=== PATIENT | female | born 1990 | race Caucasian/White ===

== ENCOUNTER 2016-06-23 15:20 | Emergency (ER) | payer OTHER ==
[~2016-06-23] VITALS: Ht 162.6 cm; Wt 50.3 kg
[~2016-06-23 15:20] MED LIST: NAPR500 PO; TRAM50 PO
[2016-06-23 15:22] VITALS: BP 118/82; PULSE 89; RESP 16; TEMP 98.3; O2SAT 100
[2016-06-23] MEDS ORDERED: CEPH250C PO (15:50)
[2016-06-23] MEDS ORDERED: IBUP-232 PO (15:50)
[2016-06-23] MEDS ORDERED: TRAM50TA PO (15:50)
[2016-06-23] MEDS ORDERED: INDO50CA PO (15:50)
--- NOTE | 2016-06-23 15:58 | PD ---
HPI Chief Complaint: Back/ Neck Pain or Injury Time Seen by Provider: 15:51 Travel History International Travel<30 days: No Contact w/Intl Traveler<30days: No Traveled to known affect area: No History of Present Illness HPI 25 years old female complains of low back pain. Patient states that the pain started a week ago. Patient denies any recent injury. Patient states the pain is aching pain with radiation down to the legs. Patient denies any headache. Patient denies any chest pain or shortness of breath. Patient denies abdominal pain. Patient denies any dysuria or frequency. Patient denies any fever chills. Patient denies any focal weakness or numbness of lower extremity. Patient has history of endometriosis and had surgery recently. Patient has been seen by data entry supervisor for that. PFSH Past Medical History Diminished Hearing: No Reproductive: Yes (endometriosis) Immunizations Current: Yes Influenza Vaccination: Yes ?: Unknown LMP: 05/08/16 Menopausal: No Past Surgical History Genitourinary Surgery: Yes (cytoscopy) Gynecologic Surgery: Yes (LAP ON BI LAT OVARIES) Other Surgery: Yes (BLADDER) Social History Alcohol Use: No Tobacco Use: Yes (1 cigarette daily) Substance Use: No Allergies-Medications (Allergen,Severity, Reaction): Coded Allergies: No Known Allergies (Unverified , 06/23/16) Reported Meds & Prescriptions Reported Meds & Active Scripts Active Reported Ibuprofen 600 Mg Tab 600 Mg PO Q8HR PRN Indomethacin 50 Mg Cap 50 Mg PO TID Take with food, milk, or antacids to decrease stomach adverse effects. Tramadol (Tramadol HCl) 50 Mg Tab 50 Mg PO Q8H PRN Cephalexin 250 Mg Cap 250 Mg PO Q8H PRN Review of Systems General / Constitutional: No: Fever Eyes: No: Visual changes HENT: No: Headaches Cardiovascular: No: Chest Pain or Discomfort Respiratory: No: Shortness of Breath Gastrointestinal: No: Abdominal Pain Genitourinary: No: Dysuria Musculoskeletal: No: Pain Skin: No Rash Neurologic: No: Weakness Psychiatric: No: Depression Endocrine: No: Polydipsia Hematologic/Lymphatic: No: Easy Bruising Physical Exam Narrative GENERAL: Well-nourished, well-developed patient. SKIN: Warm and dry. HEAD: Normocephalic. EYES: No scleral icterus. No injection or drainage. NECK: Supple, trachea midline. No JVD or lymphadenopathy. CARDIOVASCULAR: Regular rate and rhythm without murmurs, gallops, or rubs. RESPIRATORY: Breath sounds equal bilaterally. No accessory muscle use. GASTROINTESTINAL: Abdomen soft, non-tender, nondistended. MUSCULOSKELETAL: No cyanosis, or edema. BACK: Mild tenderness on palpation lumbar area, without obvious deformity. No CVA tenderness. Neurologic exam normal. Data Data Last Documented VS Vital Signs Date Time Temp Pulse Resp B/P Pulse Ox O2 Delivery O2 Flow Rate FiO2 06/23/16 15:22 98.3 89 16 118/82 100 Orders Urinalysis - C+S If Indicated (06/23/16 15:52) Ed Urine Pregnancytest Poc (06/23/16 15:52) Spine, Lumbar - Ltd (Ap & Lat) (06/23/16 15:52) Labs Laboratory Tests Test 06/23/16 16:00 Urine Color YELLOW Urine Turbidity CLOUDY Urine pH 6.0 Urine Specific [place] 1.025 Urine Protein NEG mg/dL Urine Glucose (UA) NEG mg/dL Urine Ketones NEG mg/dL Urine Occult Blood SMALL Urine Nitrite NEG Urine Bilirubin NEG Urine Leukocyte Esterase NEG Urine RBC 4-9 /hpf Urine WBC 0-2 /hpf Urine Squamous Epithelial 0-5 /hpf Cells Urine Bacteria RARE /hpf Microscopic Urinalysis Comment CULT NOT INDICATED MDM Medical Decision Making Medical Screen Exam Complete: Yes Emergency Medical Condition: Yes Interpretation(s) Urine test negative. 1705 p.m. Lumbar spine x-ray negative acute pathology. UA negative. Differential Diagnosis Differential diagnosis including lumbar strain, fracture, H&P, UTI, pyelonephritis, nephrolithiasis, PID. Narrative Course 25 years old female with low back pain. Diagnosis Primary Impression: Lumbar strain Qualified Code: S39.012A - Lumbar strain, initial encounter Patient Instructions: General Instructions Additional Instructions: Take medication as needed for pain. Follow-up with personal physician, data entry supervisor and orthopedist. Return if worse. Med/Other Pt SpecificInfo: Prescription(s) given Scripts Methocarbamol (Robaxin)750 Mg Poi461 Mg PO QID #40 TAB Prov:Osvaldo Joyce MD 06/23/16 Disposition: 01 DISCHARGE HOME Condition: Stable Osvaldo Joyce MD Jun 23, 2016 15:58
[2016-06-23 16:26] LABS: BLOOD, URINE SMALL (NEG); GLUCOSE,URINE NEG (NEG); KETONE, URINE NEG (NEG); NITRITE,URINE NEG (NEG)
[2016-06-23 16:32] LABS: URINE COLOR YELLOW (YELLW/STRAW)
[2016-06-23 16:33] LABS: BACTERIA, URINE RARE /hpf; SQUAMOUS EPITHELIAL CELL URINE 0-5 /hpf (0-5); WBC, URINE 0-2 /hpf (0-5)
[2016-06-23 16:34] LABS: COMMENT (UR) CULT NOT INDICATED; CULTURE IF INDICATED CULT NOT INDICATED
--- NOTE | 2016-06-23 16:50 | RADHPO ---
EXAM DATE/TIME: 06/23/2016 16:29 [facility] COMPARISON: No previous studies available for comparison. INDICATIONS : Lower back pain that radiates down legs. No known injury. MEDICAL HISTORY : None. SURGICAL HISTORY : None. ENCOUNTER: Initial ACUITY: 1 week PAIN SCORE: 3/10 LOCATION: Lumbar spine. FINDINGS: Three views of the lumbar spine demonstrate no fracture or compression deformity is present. There is no anterolisthesis or retrolisthesis. No significant arthropathy is present. The visualized paraspinous soft tissues and pelvic bones demonstrate no acute abnormality. CONCLUSION: No acute lumbar spine abnormality is identified. Edwardo Mcknight MD on June 23, 2016 at 16:47 Board Certified Radiologist. This report was verified electronically.
[2016-06-23] MEDS ORDERED: ROBA750T PO (17:10)
== END 2016-06-23 17:20 | disposition home or self-care (01) ==
LOC: PHEFT 15:20
DX: S39.012A Strain of muscle, fascia and tendon of lower back, initial encounter (principal); Z72.0 Tobacco use; X58.XXXA Exposure to other specified factors, initial encounter; Y99.9 Unspecified external cause status; Y93.9 Activity, unspecified
CPT/HCPCS: 72100; 81001; 84703; 99283

== ENCOUNTER 2016-09-20 06:19 | Emergency (ER) | payer OTHER ==
[~2016-09-20] VITALS: Ht 162.6 cm; Wt 53.0 kg
[~2016-09-20 06:19] MED LIST changes: +CEPH250C PO; +IBUP-232 PO; +INDO50CA PO; -NAPR500 PO; +ROBA750T PO; -TRAM50 PO; +TRAM50TA PO
[2016-09-20 06:20] VITALS: BP 152/88; PULSE 88; RESP 16; TEMP 98.7; O2SAT 99
--- NOTE | 2016-09-20 07:31 | PD ---
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 This patient is going through a fertility clinic in [place] to try to get . She has never been before. 20 days ago she had an intrauterine implantation. She took a test 3 days ago that was negative. She developed some pelvic cramping yesterday. Today at 5 AM she had a bit of vaginal bleeding and passed a small amount of tissue. No fever or vaginal discharge. Some severity is moderate. No alleviating factors. Duration one day. PFSH Past Medical History Diminished Hearing: No Reproductive: Yes (endometriosis) Immunizations Current: Yes ?: Unknown LMP: 08/15/16 Menopausal: No Past Surgical History Genitourinary Surgery: Yes (cytoscopy) Gynecologic Surgery: Yes (LAP ON BI LAT OVARIES) Other Surgery: Yes (BLADDER) Social History Alcohol Use: No Tobacco Use: Yes (1 cigarette daily) Substance Use: No Allergies-Medications (Allergen,Severity, Reaction): Coded Allergies: No Known Allergies (Unverified , 09/20/16) Reported Meds & Prescriptions Reported Meds & Active Scripts Active Robaxin (Methocarbamol) 750 Mg Tab 750 Mg PO QID Reported Ibuprofen 600 Mg Tab 600 Mg PO Q8HR PRN Indomethacin 50 Mg Cap 50 Mg PO TID Take with food, milk, or antacids to decrease stomach adverse effects. Tramadol (Tramadol HCl) 50 Mg Tab 50 Mg PO Q8H PRN Cephalexin 250 Mg Cap 250 Mg PO Q8H PRN Review of Systems General / Constitutional: No: Fever Eyes: No: Visual changes HENT: No: Headaches Cardiovascular: No: Chest Pain or Discomfort Respiratory: No: Shortness of Breath Gastrointestinal: No: Abdominal Pain Genitourinary: Positive: Pelvic Pain, Vaginal Bleeding, No: Dysuria Musculoskeletal: No: Pain Skin: No Rash Neurologic: No: Weakness Psychiatric: No: Depression Endocrine: No: Polydipsia Hematologic/Lymphatic: No: Easy Bruising Physical Exam Narrative GENERAL: Well-nourished, well-developed patient in no apparent distress. SKIN: Focused skin assessment reveals no rash and nodules. Skin is Warm and dry. HEAD: Atraumatic. Normocephalic. EYES: Pupils equal and round. No scleral icterus. No injection or drainage. ENT: No nasal bleeding or discharge. Mucous membranes pink and moist. NECK: Trachea midline. No JVD. CARDIOVASCULAR: Regular rate and rhythm. No murmur appreciated. RESPIRATORY: No accessory muscle use. Clear to auscultation. Breath sounds equal bilaterally. GASTROINTESTINAL: Abdomen soft, mild bilateral lower quadrant tenderness without rebound or guarding, nondistended. Hepatic and splenic margins not palpable. MUSCULOSKELETAL: No obvious deformities. No clubbing. No cyanosis. No edema. NEUROLOGICAL: Awake and alert. No obvious cranial nerve deficits. Motor grossly within normal limits. Normal speech. PSYCHIATRIC: Appropriate mood and affect; insight and judgment normal. Pelvic: Speculum exam done. Cervix is closed. Scant blood in the vault. No discharge. No adnexal mass Data Data Last Documented VS Vital Signs Date Time Temp Pulse Resp B/P Pulse Ox O2 Delivery O2 Flow Rate FiO2 09/20/16 06:20 98.7 88 16 152/88 99 Room Air Orders Iv Access Insert/Monitor (09/20/16 07:26) Complete Blood Count With Diff (09/20/16 07:26) Beta Hcg (Quant/Titer) (09/20/16 07:26) Labs Laboratory Tests Test 09/20/16 07:33 White Blood Count 8.2 TH/MM3 Red Blood Count 4.56 MIL/MM3 Hemoglobin 14.8 GM/DL Hematocrit 41.6 % Mean Corpuscular Volume 91.3 FL Mean Corpuscular Hemoglobin 32.4 PG Mean Corpuscular Hemoglobin 35.5 % Concent Red Cell Distribution Width 12.7 % Platelet Count 277 TH/MM3 Mean Platelet Volume 8.3 FL Neutrophils (%) (Auto) 72.5 % Lymphocytes (%) (Auto) 19.1 % Monocytes (%) (Auto) 5.4 % Eosinophils (%) (Auto) 2.5 % Basophils (%) (Auto) 0.5 % Neutrophils # (Auto) 6.0 TH/MM3 Lymphocytes # (Auto) 1.6 TH/MM3 Monocytes # (Auto) 0.4 TH/MM3 Eosinophils # (Auto) 0.2 TH/MM3 Basophils # (Auto) 0.0 TH/MM3 CBC Comment DIFF FINAL Differential Comment Human Chorionic Gonadotropin, LESS THAN 1 Quant MIU/ML MDM Medical Decision Making Medical Screen Exam Complete: Yes Emergency Medical Condition: Yes Medical Record Reviewed: Yes Differential Diagnosis Miscarriage, threatened , dysfunctional uterine bleeding Narrative Course I have reviewed the patient's electronic medical record. Patient was here May 2015 for endometriosis/pelvic pain IV placed CBC is normal Beta hCG is 0 Patient is clinically stable for outpatient follow-up with her [facility] provider No issue today May be menstrual period Versus some irregular bleeding given all the hormones she is taking Jerry Cline MD Sep 20, 2016 07:31
[2016-09-20 07:44] LABS: BASOPHIL % 0.5 % (0.0-2.0); EOSINOPHIL # 0.2 TH/MM3 (0-0.4); EOSINOPHIL % 2.5 % (0.0-4.0); HEMATOCRIT 41.6 % (35.0-46.0); HEMO FLAGS DIFF FINAL; LYMPH % 19.1 % (9.0-44.0); LYMPHOCYTE # 1.6 TH/MM3 (1.0-4.8); MEAN CELL VOLUME 91.3 FL (80.0-100.0); MEAN CORPUSCULAR HEMOGLOBIN 32.4 PG (27.0-34.0); MEAN CORPUSCULAR HGB CONC 35.5 % (32.0-36.0); MONO % 5.4 % (0.0-8.0); NEUT % 72.5 % (16.0-70.0); PLATELET COUNT 277 TH/MM3 (150-450); RED BLOOD COUNT 4.56 MIL/MM3 (4.00-5.30); RED CELL DISTRIBUTION WIDTH 12.7 % (11.6-17.2); WHITE BLOOD COUNT 8.2 TH/MM3 (4.0-11.0)
[2016-09-20 07:59] LABS: BETA HCG QUANT LESS THAN 1 MIU/ML (0-5)
[2016-09-20 09:31] VITALS: BP 116/65
== END 2016-09-20 09:32 | disposition home or self-care (01) ==
LOC: NEPE 06:19
DX: N93.9 Abnormal uterine and vaginal bleeding, unspecified (principal); Z32.02 Encounter for pregnancy test, result negative
CPT/HCPCS: 84702; 85025; 99284